=== PATIENT | female | born 1995 | race American Indian/Alaskan Native ===

== ENCOUNTER 2021-02-01 16:07 | Emergency (ER) | payer SELFPAY ==
--- NOTE | 2021-02-01 17:14 | Emergency Department Report ---
- General Chief Complaint: Upper Respiratory Infection Stated Complaint: COVID SYMPTOMS PUI?: Yes Time Seen by Provider: 02/01/21 16:19 Source: patient Mode of arrival: Ambulatory Limitations: No Limitations - History of Present Illness Initial Comments: 25-year-old female with a past medical history of PCOS and schizophrenia presents to the ER today with complaints of URI symptoms and sciatica. Patient states that the URI symptoms started Saturday. She reports sore throat, headache, rhinorrhea, and nasal congestion. She denies any cough, shortness of breath or wheezing. She denies any fever or chills. She states that she have generalized body aches chronically, nothing worse recently. She denies any apparent ill contacts or recent travel. She did not get any of the COVID-19 vaccines nor did she get a COVID-19 test since she has been sick. She also complains of pain from her lower back radiating down to the leg. She states that she was told that her symptoms are likely related related to sciatica but she is also concerned that she may have MS as it runs in her family and because she is also having diffuse numbness throughout her body which she has been having recurrently for a few years. Patient states that she was seen by neurologist when she lived in [place], and had a negative work-up for MS but she states that her symptoms has never went away. She states that she is new to the area, and has not followed up with a PCP nor neurologist since moving here. She reports no focal weakness, speech changes, vision changes, bowel or bladder incontinence, saddle anesthesia or any additional symptoms at this time. MD Complaint: sore throat, rhinorrhea, nasal congestion -: Gradual, days(s) - Related Data Home Medications Medication Instructions Recorded Confirmed Last Taken Benztropine 1 mg PO DAILY 02/01/21 02/01/21 02/01/21 Citalopram 20 mg PO DAILY 02/01/21 02/01/21 02/01/21 Ferrous Sulfate 325 mg PO DAILY 02/01/21 02/01/21 02/01/21 risperiDONE 2 mg PO DAILY 02/01/21 02/01/21 02/01/21 Previous Rx's Medication Instructions Recorded Last Taken Type Gabapentin 100 mg PO Q8HR PRN #25 capsule 02/01/21 Unknown Rx Ketorolac [Toradol] 10 mg PO Q6H PRN #20 tablet 02/01/21 Unknown Rx methOCARBAMOL [Robaxin TAB] 750 mg PO Q8H PRN #30 tablet 02/01/21 Unknown Rx Allergies Allergy/AdvReac Type Severity Reaction Status Date / Time No Known Allergies Allergy Verified 02/01/21 16:11 ED Review of Systems ROS: Stated complaint: COVID SYMPTOMS Other details as noted in HPI Comment: All other systems reviewed and negative Constitutional: denies: chills, fever Eyes: denies: eye pain, eye discharge, vision change ENT: throat pain, congestion, other (rhinorrhea ) Respiratory: denies: cough, shortness of breath, SOB with exertion, SOB at rest, wheezing Cardiovascular: denies: chest pain, palpitations Gastrointestinal: denies: abdominal pain, nausea, diarrhea Genitourinary: denies: urgency, dysuria, discharge Musculoskeletal: back pain, myalgia Neurological: headache, numbness, paresthesias Psychiatric: denies: anxiety, depression, auditory hallucinations, visual hallucinations, homicidal thoughts, suicidal thoughts Hematological/Lymphatic: denies: easy bleeding, easy bruising, swollen glands ED Past Medical Hx - Medications Home Medications: Home Medications Medication Instructions Recorded Confirmed Last Taken Type Benztropine 1 mg PO DAILY 02/01/21 02/01/21 02/01/21 History Citalopram 20 mg PO DAILY 02/01/21 02/01/21 02/01/21 History Ferrous Sulfate 325 mg PO DAILY 02/01/21 02/01/21 02/01/21 History Gabapentin 100 mg PO Q8HR PRN #25 capsule 02/01/21 Unknown Rx Ketorolac [Toradol] 10 mg PO Q6H PRN #20 tablet 02/01/21 Unknown Rx methOCARBAMOL [Robaxin TAB] 750 mg PO Q8H PRN #30 tablet 02/01/21 Unknown Rx risperiDONE 2 mg PO DAILY 02/01/21 02/01/21 02/01/21 History ED Physical Exam - General Limitations: No Limitations General appearance: alert, in no apparent distress - Head Head exam: Present: atraumatic, normocephalic, normal inspection - Eye Eye exam: Present: normal appearance, PERRL, EOMI Pupils: Present: normal accommodation - ENT ENT exam: Present: normal exam, mucous membranes moist, TM's normal bilaterally - Neck Neck exam: Present: normal inspection, full ROM. Absent: meningismus - Respiratory Respiratory exam: Present: normal lung sounds bilaterally. Absent: respiratory distress, wheezes, rales, rhonchi, stridor - Cardiovascular Cardiovascular Exam: Present: regular rate, normal rhythm, normal heart sounds - GI/Abdominal GI/Abdominal exam: Present: soft. Absent: distended, tenderness, guarding, rebound - Neurological Exam Neurological exam: Present: alert, oriented X3, CN II-XII intact, normal gait - Psychiatric Psychiatric exam: Present: normal affect, normal mood - Skin Skin exam: Present: intact ED Course Vital Signs 02/01/21 02/01/21 16:12 17:32 Temperature 99.0 F 98.4 F Pulse Rate 94 H 80 Respiratory 18 16 Rate Blood Pressure 106/45 134/84 O2 Sat by Pulse 100 100 Oximetry ED Medical Decision Making - Medical Decision Making 25-year-old female with a past medical history of PCOS and schizophrenia presents to the ER today with complaints of URI symptoms and sciatica. Patient states that the URI symptoms started Saturday. She reports sore throat, headache, rhinorrhea, and nasal congestion. She denies any cough, shortness of breath or wheezing. She denies any fever or chills. She states that she have generalized body aches chronically, nothing worse recently. She denies any apparent ill contacts or recent travel. She did not get any of the COVID-19 vaccines nor did she get a COVID-19 test since she has been sick. She also complains of pain from her lower back radiating down to the leg. She states that she was told that her symptoms are likely related related to sciatica but she is also concerned that she may have MS as it runs in her family and because she is also having diffuse numbness throughout her body which she has been having recurrently for a few years. Patient states that she was seen by neurologist when she lived in [place], and had a negative work-up for MS but she states that her symptoms has never went away. She states that she is new to the area, and has not followed up with a PCP nor neurologist since moving here. She reports no focal weakness, speech changes, vision changes, bowel or bladder incontinence, saddle anesthesia or any additional symptoms at this time. 1853: Rapid strep is negative. Patient is well-appearing, nontoxic and not in any significant distress. She appears well-hydrated. She is awake alert and oriented x3, she is neurologically intact with a normal gait. Chest is clear to auscultation. No meningeal signs on exam. Abdomen soft and nontender. Patient with URI symptoms is likely viral, but I did recommend that she get an outpatient COVID-19 test as this could be a possible cause of some of her symptoms. As far as diffuse paresthesias, and sciatica, and her concern for MS, patient will be given referral to local neuro field sales specialist for further evaluation. There is no indication for any additional testing, admission or specialist consult at this time. Patient expressed understanding for instructions and agree with plan. Patient stable at time of discharge Critical care attestation.: If time is entered above; I have spent that time in minutes in the direct care of this critically ill patient, excluding procedure time. ED Disposition Clinical Impression: URI (upper respiratory infection), Paresthesia, Sciatica Disposition: 01 HOME / SELF CARE / HOMELESS Is pt being admited?: No Does the pt Need Aspirin: No Condition: Stable Instructions: Paresthesia, Upper Respiratory Infection, Adult, [id number], Viral Respiratory Infection Additional Instructions: I recommend taking the toradol, the gabapentin and the Robaxin as prescribed to help with your pain. I do recommend follow-up with the neurologist this time additional instructions for further evaluation of your chronic paresthesias and sciatica symptoms. Also recommend that she do get outpatient COVID-19 test given that you are having upper respiratory/viral symptoms which could be related to Covid. I Do recommend that you quarantine until you get your COVID- 19 test results. You can take [id number] cough cold medications for your symptoms follow-up with PCP listed on additional instructions as well. Return to the ER if your symptoms changes or worsens in any way. Prescriptions: Gabapentin 100 mg PO Q8HR PRN #25 capsule PRN Reason: nerve pain methOCARBAMOL [Robaxin TAB] 750 mg PO Q8H PRN #30 tablet PRN Reason: Muscle Spasm Ketorolac [Toradol] 10 mg PO Q6H PRN #20 tablet PRN Reason: Pain Referrals: LOCATED WITHIN [facility] [Provider Group] - 3-5 Days (Neurologist) JULY VIRAMONTES MD [Staff Physician] - 3-5 Days (Primary care physician) Forms: Work/School Release Form(ED) Time of Disposition: 18:42 Print Language: PASHTO
[2021-02-01 17:35] VITALS: BP 134/84
== END 2021-02-01 19:56 | disposition home or self-care (01) ==
LOC: ED 16:07
DX: J06.9 Acute upper respiratory infection, unspecified (principal); R20.2 Paresthesia of skin; M54.30 Sciatica, unspecified side; Z79.899 Other long term (current) drug therapy
CPT/HCPCS: 87116; 87430; 99283